=== PATIENT | male | born 1965 ===

== ENCOUNTER 2024-02-10 06:51 | Day surgery (SDC) | payer OTHER ==
[2024-02-05 09:32] LABS: HEMATOCRIT 42.1 % (39.0-48.0); HEMOGLOBIN 14.1 g/dL (13-16.00); MEAN CELL VOLUME 87.5 fL (80.0-100.00); MEAN CORPUSCULAR HEMOGLOBIN 29.4 pg (27.00-32.0); MEAN CORPUSCULAR HGB CONC 33.6 g/dl (32.0-36.0); PLATELET COUNT 219 K/uL (150-450); RED BLOOD COUNT 4.81 M/uL (4.00-6.00)
[2024-02-05 10:06] LABS: INR 1.04; PARTIAL THROMBOPLASTIN TIME 31.7 SECONDS (22.0-34.0); PROTHROMBIN TIME 11.3 SECONDS (9.0-11.5)
[2024-02-05 10:20] LABS: PH,URINE 5.5 (5.0-8.0); URINE APPEARANCE Clear; URINE BILIRRUBIN Negative (NEGATIVE); URINE BLOOD Negative; URINE COLOR Yellow; URINE KETONE Negative (NEGATIVE); URINE LEUKOCYTE Negative; URINE NITRATE Negative; URINE PROTEIN Negative (NEGATIVE); URINE UROBILINOGEN 0.2 E.U./dl
[2024-02-05 10:24] LABS: URINE BACTERIA 13.8 uL (0.0-1933); URINE WBC 4.7 uL (0.0-23.2)
[2024-02-05 10:26] LABS: ALBUMIN 4.2 gm/dL (3.4-5.0); BILIRUBIN TOTAL 0.65 mg/dL (0.3-1.2); CALCIUM 9.2 mg/dL (8.5-10.1); CREATININE SERUM 0.64 mg/dL (0.70-1.30); GFR 128.9; GLOBULINA 3.1 G/DL (2.4-3.5); POTASSIUM 4.26 mEq/L (3.5-5.1); TOTAL PROTEIN 7.3 gm/dL (6.4-8.2)
[2024-02-05 10:27] LABS: URINE GLUCOSE >=1000 MG/DL (NEGATIVE); URINE RBC 1.2 uL (0.0-20.8)
[~2024-02-10 06:51] MED LIST: CARVEDILOL6.25 M1; ENTRESTO 49 MG1 EACH; JARDIANCE10 MG; LEVOTHYROXINE112 MC1; LIPITOR 10 MG
[2024-02-10] MEDS ORDERED: LIDOCAINE HCL 1%/EPINEPHRINE 20ML VIAL IJ ONE (07:29)
[2024-02-10] MEDS ORDERED: BUPIVACAINE HCL/MPF 0.5% 30ML VIAL ONE (07:29)
[2024-02-10] MEDS ORDERED: CEFAZOLIN SODIUM 1,000 MG VIAL ONE (07:30)
[2024-02-10] MEDS ORDERED: SUGAMMADEX SODIUM 200 MG/2 ML VIAL IV ONE (08:50)
== END 2024-02-10 11:55 | disposition home or self-care (01) ==
LOC: CIR.AMB 06:51
PROVIDERS: ATTEND Surgery
DX: C76.8 Malignant neoplasm of other specified ill-defined sites (principal); C77.3 Secondary and unspecified malignant neoplasm of axilla and upper limb lymph nodes; R59.0 Localized enlarged lymph nodes; E11.9 Type 2 diabetes mellitus without complications; E03.9 Hypothyroidism, unspecified